=== PATIENT | male | born 1970 ===

== ENCOUNTER 2018-10-13 00:24 | Observation (INO) | payer BC ==
--- NOTE | 2018-10-12 11:57 | HISTORY AND PHYSICAL ---
DATE OF ADMISSION: October 13, 2018 IDENTIFICATION/CHIEF COMPLAINT Juan is a 48-year old gentleman with a chief complaint of a broken left arm. HISTORY OF PRESENT ILLNESS The patient fell on the ice and sustained an isolated humeral shaft fracture. He was splinted and referred for orthopedic care. Surgery is indicated to restore stability and reduce risks of prolonged immobilization and nonunion. PAST MEDICAL HISTORY Notable for smoking history with mild COPD. He uses a Ventolin inhaler as needed. He has been on pain medicine since injury but does not typically take pain medicine. He is taking Bowler as needed. ALLERGIES He has no known drug allergies. He has multiple food allergies including chicken, turkey and tuna fish. PAST SURGICAL HISTORY Notable for tonsillectomy and skin graft. FAMILY HISTORY Notable for grandfather with cancer. SOCIAL HISTORY Notable for smoking 1-1/2 packs of cigarettes per day. He drinks alcohol, 1-2 beers per day at most. He denies abuse. REVIEW OF SYSTEMS Negative. PHYSICAL EXAMINATION GENERAL: Healthy male who appears his stated age. He is normocephalic, atraumatic. NECK: Supple. LUNGS: Clear. HEART: Regular. ABDOMEN: Soft. ORTHOPEDIC EXAM: Left arm is immobilized in a coaptation splint. Marginal skin is in good condition. Vascular function is intact distally including motor testing of the radial nerve. Radiographs demonstrate a mildly distracted and mildly displaced, slightly varus angulated mid shaft humerus fracture with some complete fracture lines extending into the distal fragment, consistent with some comminution. ASSESSMENT Closed left humeral shaft fracture. PLAN After prolonged discussion with Juan and his about surgical and nonsurgical options, he selected to proceed with open reduction internal fixation. The nature of the procedure, risks, benefits and anticipated rehab course were reviewed. He is aware that no matter what he does if he does not stop smoking he is at high risk of nonunion. The risks of the procedure include but are not limited to , major medical or anesthetic complications, infection, neurovascular injury, blood transfusion, nonunion, malunion, implant loosening, migration or failure, need for additional procedure and other unforeseen. He understands and wishes to proceed. Signed permits were placed in the chart. No guarantees were given or implied. INOCENCIA
[2018-10-13] VITALS (8 sets, daily range): BP systolic 139–162; BP diastolic 78–97
[~2018-10-13] VITALS: Ht 172.7 cm; Wt 84.8 kg
[~2018-10-13 00:24] MED LIST: ALB18R INH; HYDR-653 PO
[2018-10-13] MEDS ORDERED: LIDOCAINE 2% IV 100 MG/5ML SYR ONE (13:54)
[2018-10-13] MEDS ORDERED: fentaNYL CITR 250 MCG/5 ML AMP ONE ×2 (13:56→16:40)
[2018-10-13] MEDS ORDERED: PROPOFOL EMUL(*) 10MG/ML 20 ML 20 ML ONE (13:58)
[2018-10-13] MEDS ORDERED: MIDAZOLAM 2 MG/2 ML VIAL IVP PRN (15:45)
[2018-10-13] MEDS ORDERED: ceFAZolin(*) 2GM/D5W 50ML 50 ML IVPB ONE (15:45)
[2018-10-13] MEDS ORDERED: NORMOSOL R SOLN(*) 1000 ML BAG 1,000 ML IV PRN ×2 (15:45→19:20)
[2018-10-13] MEDS ORDERED: FAMOTIDINE 20 MG TAB PO ONE (15:45)
[2018-10-13] MEDS ORDERED: LIDOCAINE/SOD BICARB 8.4% SYR ID ONE (15:45)
[2018-10-13] MEDS ORDERED: ROPIVACAINE 0.2% 20 ML VIAL ONE ×2 (16:01→17:59)
[2018-10-13] MEDS ORDERED: DEXAMETHASONE SOD 4 MG/ML VIAL ONE (16:21)
[2018-10-13] MEDS ORDERED: ONDANSETRON 4 MG/2 ML VIAL ONE (16:22)
[2018-10-13] MEDS ORDERED: KETAMINE HCL 200 MG/20 ML MDV ONE ×2 (16:23→17:24)
[2018-10-13] MEDS ORDERED: NS 0.9% IRRIGATION 1000ML PLCT IR ONE (16:56)
[2018-10-13] MEDS ORDERED: fentaNYL CITR 100 MCG/2 ML AMP ONE ×2 (18:46→18:57)
[2018-10-13] MEDS: HYDROmorphone HCL 2 MG/ML SDV ONE (19:10)
[2018-10-13] MEDS ORDERED: PROMETHAZINE 25 MG/ML 1 ML AMP IVP PRN (19:20)
[2018-10-13] MEDS ORDERED: FLUSH 10 ML SYR IVP PRN (19:20)
[2018-10-13] MEDS ORDERED: BISACODYL 10 MG SUPP PR PRN (19:20)
[2018-10-13] MEDS ORDERED: MAGNESIUM HYDROXIDE* 30ML UDCP PO PRN (19:20)
[2018-10-13] MEDS ORDERED: diphenhydrAMINE 25 MG CAP PO PRN (19:20)
[2018-10-13] MEDS ORDERED: diphenhydrAMINE 50 MG/ML VIAL IVP PRN (19:20)
[2018-10-13] MEDS ORDERED: ACETAMINOPHEN 325 MG TAB PO PRN (19:20)
[2018-10-13] MEDS ORDERED: ZOLPIDEM TARTRATE 5 MG TAB PO PRN (19:20)
[2018-10-13] MEDS ORDERED: BENZOCAINE/MENTHOL 1 EACH LOZG PO PRN (19:20)
--- NOTE | 2018-10-13 20:05 | RADIOLOGY IMAGING REPORT ---
FACILITY: [facility] - [place], [place] PATIENT NAME: Juan Barahona : 1970 MR: [id number] V: [id number] EXAM DATE: ORDERING PHYSICIAN: BERENICE BARRERA TECHNOLOGIST: Location: [facility] Patient: Juan Barahona : 1970 Visit/Account:[id number] Date of Sevice: 10/13/2018 HUMERUS LEFT HISTORY: Left humeral fracture COMPARISON: None FINDINGS: Screw-plate fixation of a comminuted mid shaft humeral fracture in good alignment. Hardwar e is intact. Skin amaya and gas within the soft tissues from recent surgery. IMPRESSION: 1. Screw plate fixation of a left mid humeral fracture in good alignment. Report Dictated By: Armand Osorio MD at 10/13/2018 8:01 PM Report E-Signed By: Armand Osorio MD at 10/13/2018 8:01 PM WSN:[id number]
--- NOTE | 2018-10-13 20:38 | OPERATIVE REPORT 1 ---
EVENT DATE: October 13, 2018 SURGEON: Berny Mancilla MD ANESTHESIOLOGIST: Mayur Thorne MD ANESTHESIA: General. BATCH RECORDS CLERK: Mayo Clemons PA-C PREOPERATIVE DIAGNOSIS Displaced, mildly comminuted left humeral shaft fracture. POSTOPERATIVE DIAGNOSIS Displaced, mildly comminuted left humeral shaft fracture. PROCEDURES PERFORMED 1. Open reduction, internal fixation of humeral shaft fracture. 2. Identification and neurolysis of the radial nerve. ESTIMATED BLOOD LOSS 200 mL DRAINS None. SPECIMENS None. COMPLICATIONS None apparent. TOURNIQUET TIME Zero. IMPLANTS USED Synthes 4.5 LCDC eight-hole plate and eight bicortical screws, and a single outside of plate interfragmentary screw. INDICATIONS Juan is a 48-year-old gentleman who fell on the ice and has a displaced humeral shaft fracture. After discussion of surgical and nonsurgical alternatives, he has opted for surgery to restore mobility to his shoulder and elbow, optimize chance of healing in an anatomic position, and provide initial stability. DESCRIPTION OF PROCEDURE Patient is taken to the operating room and placed supine on the operating table. General anesthesia is induced. Antibiotics administered IV. In the slightly floppy lateral position, the left upper extremity was prepped and draped in the usual sterile fashion for orthopedic surgery. A curvilinear incision is made over the anterolateral approach to the humerus. This is carried down through the skin only. Dissection is carried through the subcutaneous tissue down to the deep fascia. At this point before proceeding any further, the radial nerve is identified in the interval between the brachialis and the brachioradialis. This is carefully dissected out, and a vessel loop is placed around the nerve to control the nerve. Dissection is then carried proximally, releasing the nerve from any granulation tissue and most importantly releasing the nerve at the fracture site as this courses posteriorly towards the spiral groove. Once this is satisfactorily released off the back of the humerus on the proximal fragment, the deep bone retractors are placed to keep this away from the fracture ends. Fracture ends are then cleared of fibrinous debris and clot with lavage, rongeur, curettes, and dental pick. The fracture is provisionally reduced and held with a tenaculum. Interfragmentary screw is placed from proximal posterolateral to distal anteromedial to provide initial fixation. This is done because there is not a place to lay the plate straight lateral here. This is going to need to be laid a little bit anteriorly to avoid the deltoid tuberosity. Plate is then bent, eight-hole 4.5 LCDC plate, and is used to neutralize the interfragmentary screw, providing rock-solid fixation. Bone quality is excellent. Four bicortical screws are placed above and below the fracture site. The mini C-arm is used to confirm satisfactory reduction and fixation. Excellent stability is obtained. Wound is copiously lavaged. The radial nerve is allowed to fall back into its position, having been thoroughly released. Deep fascia is reapproximated with some 0 Vicryls subcutaneous tissue with 3-0 Vicryl, and the skin with surgical amaya. Xeroform is applied for a dry, sterile dressing and a coaptation splint. PLAN Plan postoperatively is to remove amaya at roughly 10 to 14 days postop and transition to sling only with early range of motion of the shoulder and elbow. Strengthening can be commenced once there is radiographic evidence of healing. [facility]
[2018-10-13] MEDS: APAP/HYDROCODONE 325/7.5 TAB PO PRN (21:07)
--- NOTE | 2018-10-13 21:22 | Hospitalist Consultation ---
History of Present Illness Requesting Physician Dr Mancilla Reason for Consult Medical management of comorbidities. Chief Complaint L humerus ORIF History of Present Illness 48M admitted after L humerus ORIF for observation. Denies any PMHx, reports does smoke 1ppd. Declines any smoking cessation medication. History Problems: (1) Tobacco abuse Home Meds Reported Medications Albuterol Sulfate (VENTOLIN HFA) 18 Gm Inh, 1-2 PUFF INH 3-4XD PRN for WHEEZING, INH 10/09/18 Hydrocodone Bit/Acetaminophen (NORCO 5-325 TABLET) 1 Each Tablet, 1 EACH PO QID PRN for PAIN, TAB 10/09/18 Allergies: Coded Allergies: No Known Drug Allergies (Unverified , 10/09/18) Patient History: FH: suicide Hx Smoking: Yes (1 1/2PPD X 31 YRS) Smoking Status: Current: Every Day Smoker Caffeine Intake: Coffee Caffeine/Cups Per Day: 1 1/2 POT OF COFFEE Hx Alcohol Use: Yes Alcohol Used: Beer Hx Substance Use Disorder: No Social Drug Use: Never History of IV Drug Use: No Review of Systems All Systems Reviewed/Normal: Yes, Except as Noted Constitutional: No Fever, No Weight Loss Gastrointestinal: No Nausea, No Vomiting Musculoskeletal: Pain Exam Vital Signs Vital Signs Date Time Temp Pulse Resp B/P (MAP) Pulse Ox O2 Delivery O2 Flow Rate FiO2 10/13/18 15:23 98.5 80 14 139/87 (104) 90 Room Air General Appearance: Alert, Awake, No Acute Distress Neuro: No Gross deficits ENT: Normal Cardiovascular: Normal Rhythm & Peripheral Pulses Respiratory: No Respiratory Distress Extremities: Soft and Non Tender, Warm, Pulses, Perfused Assessment and Plan Problems: (1) Left humeral fracture Assessment & Plan: Post ORIF with Dr Mancilla, tolerated procedure well. Pain control per primary. (2) Tobacco abuse Assessment & Plan: Declines any smoking cessation or nicotine replacement medications. Venous Thromboembolism Antithrombotics Is Pt On Any Antithrombotics?: No (Early ambulation) SPARKLE MAYS DO Oct 13, 2018 21:22
[2018-10-13] MEDS: DIAZEPAM 5 MG TAB PO PRN (23:04)
[2018-10-14] VITALS: BP 140/76
[2018-10-14] MEDS: ceFAZolin(*) 1 GM VIAL 1 GM in NS(*) 0.9% 100 ML ADDVANT BAG 100 ML IVPB SCH ×2 (00:47→09:01)
[2018-10-14 01:00] VITALS: BP 139/82
[2018-10-14 02:00] VITALS: BP 144/88
[2018-10-14] MEDS: APAP/HYDROCODONE 325/7.5 TAB PO PRN ×2 (02:46→06:56)
[2018-10-14 03:00] VITALS: BP 129/77
[2018-10-14] MEDS: DIAZEPAM 5 MG TAB PO PRN (05:16)
[2018-10-14] MEDS ORDERED: CELECOXIB 200 MG CAP PO SCH (08:00)
[2018-10-14 08:01] VITALS: BP 169/107
[2018-10-14 08:11] VITALS: Ht 172.7 cm; Wt 84.8 kg
[2018-10-14] MEDS ORDERED: OXYC-865 PO (08:20)
--- NOTE | 2018-10-14 08:55 | NUR ---
Physical Therapy Impression PT eval completed to ensure adequate safety for discharge home. Goals met with initial visit. Pt declines out pt rehab appointment at this time, noting that he will set it up after his follow up with surgeon, per surgeon's instructions to him this morning. Physical Therapy Goals PT goals met with initial visit; no further visits planned. 1. Pt to be modified indep with bed mobility and transfers 2. Pt to be modified indep with ambulation x 150' with no assistive device 3. Pt to note pain adequately controlled during mobility. Patient's Goals
--- NOTE | 2018-10-14 11:01 | Hospitalist Progress Note ---
Subjective Progress Notes Subjective He was admitted after humerus ORIF. He had no acute events overnight. He has complaints of surgical site pain. Patient Complains of: Cardiovascular: No: Chest Pain Respiratory: No: Shortness of Breath Physical Exam Vital Signs Date Time Temp Pulse Resp B/P (MAP) Pulse Ox O2 Delivery O2 Flow Rate FiO2 10/14/18 08:54 87 10/14/18 08:01 98.3 99 18 169/107 (127) Nasal Cannula 2.0 Intake and Output 10/14/18 07:00 Intake Total 2400 ml Output Total 200 ml Balance 2200 ml Intake Oral 1000 ml IV Total 1400 ml Output Estimated Blood Loss 200 ml # Voids 2 General Appearance: Alert, Awake, No Acute Distress, Afebrile Neuro: No Gross deficits Cardiovascular: Regular Rate and Rhythm Respiratory: No Respiratory Distress, Clear to Auscultation Psych: Alert & Oriented X3, Appropriate Mood & Affect Assessment and Plan Problems: (1) Left humeral fracture Assessment & Plan: Post ORIF with Dr Mancilla, tolerated procedure well. Pain control per primary. (2) Tobacco abuse Assessment & Plan: Declines any smoking cessation or nicotine replacement medications. Exam Sepsis Risk: No Definite Risk ISRAEL AGUIRRE Oct 14, 2018 11:01
== END 2018-10-14 08:21 | disposition home or self-care (01) ==
LOC: OR 00:24 → INTOOBSV 20:56 → ICU 20:56
PROVIDERS: ADMIT Orthopaedic Surgery; ATTEND Orthopaedic Surgery
DX: S42.352A Displaced comminuted fracture of shaft of humerus, left arm, initial encounter for closed fracture (principal)
CPT/HCPCS: 24515; 73060; 76000; 97161; C1713; G0378; J0690; J1100; J1170; J2001; J2405; J2704; J2795; J3010; J3490; J7050